=== PATIENT | male | born 1945 ===

== ENCOUNTER → 2023-05-05 | Outpatient (REF) | payer MEDICARE, OTHER | LOC: M LAB REF 17:18 | PROVIDERS: ATTEND Internal Medicine Endocrinology, Diabetes & Metabolism | DX: E04.1 Nontoxic single thyroid nodule (principal) ==

== ENCOUNTER → 2023-08-14 | Outpatient (REF) | payer MEDICARE, OTHER | LOC: M LAB REF 17:14 | PROVIDERS: ATTEND Internal Medicine Endocrinology, Diabetes & Metabolism | DX: E04.1 Nontoxic single thyroid nodule (principal) ==

== ENCOUNTER → 2024-02-29 | Outpatient (REF) | payer MEDICARE, OTHER | LOC: M LAB REF 15:04 | PROVIDERS: ATTEND Internal Medicine Endocrinology, Diabetes & Metabolism | DX: E04.1 Nontoxic single thyroid nodule (principal) ==